=== PATIENT | male | born 2000 | race Caucasian/White ===

== ENCOUNTER 2022-08-10 16:59 | Outpatient (CLI) | payer OTHER ==
--- NOTE | 2022-08-11 10:56 | XRAY Report ---
PROCEDURE: Foot 3 View RT INDICATIONS: CONTUSION OF R FOOT TECHNIQUE: 3 views of the foot were acquired. COMPARISON: None. FINDINGS: Bones: No acute fractures or dislocations. No suspicious bony lesions. Soft tissues: Mild soft tissue edema at the dorsum of the foot appear No tibiotalar joint effusion. IMPRESSION: No acute osseous abnormality. If there is clinical concern or persistent symptoms, additional imaging such as repeat radiographs or advanced imaging (e.g. CT, MRI) may be helpful for further evaluation. Reviewed by: Faustino Tovar MD on 08/11/2022 10:54 AM PDT Approved by: Faustino Tovar MD on 08/11/2022 10:54 AM PDT Station ID: [id number]
== END 2022-08-10 23:59 | disposition home or self-care (01) ==
LOC: DI.N 16:59
PROVIDERS: ATTEND Physician Assistant Medical
DX: S90.31XA Contusion of right foot, initial encounter (principal)